=== PATIENT | male | born 1955 | race Caucasian/White ===

== ENCOUNTER 2016-07-27 17:23 | Emergency (ER) | payer MEDICARE ==
[2016-07-27] MEDS ORDERED: LIDOCAINE 2% UROJECT 10 ML ONE (17:49)
== END 2016-07-27 20:03 | disposition home or self-care (01) ==
LOC: ED 17:23
DX: K59.4 Anal spasm (principal); E66.9 Obesity, unspecified; G47.30 Sleep apnea, unspecified; E11.9 Type 2 diabetes mellitus without complications; I10 Essential (primary) hypertension; I48.91 Unspecified atrial fibrillation; G89.29 Other chronic pain; M54.9 Dorsalgia, unspecified; Z87.891 Personal history of nicotine dependence
CPT/HCPCS: 99283 ×2; A9270

== ENCOUNTER 2016-07-28 04:16 | Emergency (ER) | payer MEDICARE ==
[2016-07-28] MEDS ORDERED: IOPAMIDOL 300 (61%) 150 ML VIAL IV ONE (04:17)
[2016-07-28] MEDS ORDERED: ACETAMINOPHEN 500 MG TABLET ONE (05:29)
[2016-07-28] MEDS ORDERED: SODIUM CHLORIDE 0.9% 1,000 ML ONE (06:10)
[2016-07-28 06:24] LABS: BASO # 0.1 K/mm3 (0.0-0.2); BASO % 0.5 % (0.2-1.0); EOS # 0.1 (0.0-0.5); EOS % 1.1 % (0.9-2.9); HEMOGLOBIN 12.4 gm/l (14.0-18.0); IMM NEUT% 0.3 % (0-1); LYMPH # 2.7 (1.0-4.8); MEAN CELL VOLUME 84.9 fl (80.0-94.0); MEAN CORPUSCULAR HEMOGLOBIN 26.3 pg (27.0-31.0); MONO # 0.8 (0.0-0.8); MONO % 8.3 % (4-12); NEUT % 61.8 % (43-75); PLATELET COUNT 265 K/mm3 (130-400); RED CELL DISTRIBUTION WIDTH 14.6 % (11.5-14.5)
[2016-07-28 06:37] LABS: ALB/GLOB RATIO 0.9 (>1.0); ALBUMIN 3.5 gm/dL (3.5-5.7); CALCIUM 8.8 mg/dL (8.6-10.3)
--- NOTE | 2016-07-28 07:50 | CT ---
ABD/PELVIS W/ CON COMPARISON: Abdomen one view 07/28/2016. CT abdomen and pelvis with contrast 04/01/2016 HISTORY: Increasing abdominal pain. Air-fluid levels in the colon. Technique: Intravenous injection 125 mL Isovue 300. Using a [employer] [address] scanner, images were obtained from the diaphragm to the floor the pelvis. An automated dose reduction technique was used to minimize patient radiation dose. Dose information: CTDIvol (mGy): 18.50 DLP(mGycm): 865.10 FINDINGS: Lung bases: Normal. Inferior mediastinum and heart: Mitral annular calcification. Liver: Normal. Gallbladder:Normal. Bile ducts: Normal. Pancreas: Atrophy. Spleen: Normal. Adrenal glands: No change. 8 mm nodule in the right adrenal gland. Normal left adrenal gland Kidneys: No change. Atrophy of the right kidney. Normal enhancement of the left kidney without hydronephrosis. 4 nonobstructive calculi in the interpolar region and the lower pole, up to 4.5 mm. Ureters: Normal Urinary bladder: Normal. Prostate gland and seminal vesicles: Normal. Blood vessels: Normal Lymph nodes: Normal Stomach: Normal Duodenum: Normal Small intestine: Normal Appendix: Dilated, maximum diameter 8.8 mm, unchanged. Colon: Multiple air-fluid levels, evidence of diarrhea. Rectal tube with the balloon inflated Abdominal wall and supporting musculature: Normal Bones: No acute finding. Degenerative changes in the spine. IMPRESSION: 1. Diarrhea. There is a rectal tube in satisfactory position. 2. Chronically dilated appendix. No evidence of appendicitis. 3. Incidental findings include mitral annular calcification, atrophy of the pancreas, atrophy of the right kidney, nonobstructing calculi and the left kidney, and degenerative changes in the spine. Report was sent to the emergency department [employer] medical record system 07/28/2016 at 07:51
--- NOTE | 2016-07-28 07:51 | RAD ---
ABDOMEN OR KUB COMPARISON: CT abdomen and pelvis with contrast 04/01/2016 HISTORY: Abdominal pain FINDINGS: View: Upright abdomen. Bowel gas pattern: Air-fluid levels. Organomegaly: None. Soft tissue calcification: None. Surgical clips: None. Bones: Normal. Supportive care and: A tube projects over the midline pelvis. IMPRESSION: Air-fluid levels in the colon, evidence of diarrhea.
[2016-07-28] MEDS ORDERED: LACTULOSE 20 G/30 ML UDCUP PO ONE (08:30)
== END 2016-07-28 08:53 | disposition home or self-care (01) ==
LOC: ED 04:16
DX: R19.7 Diarrhea, unspecified (principal); R10.9 Unspecified abdominal pain
CPT/HCPCS: 83605; 83690; 85025; 80053; 74000; 74177; 99284 ×2; A9270 ×2; J7030; Q9967